=== PATIENT | female | born 1935 | race Caucasian/White ===

== ENCOUNTER 2017-05-20 11:15 | Emergency (ER) | payer MEDICARE ==
[2017-05-20 11:23] VITALS: BP 147/74
[2017-05-20] MEDS ORDERED: Dexamethasone 4 MG/ML SDV IM ONE (12:01)
[2017-05-20] MEDS ORDERED: Levofloxacin 500 MG Tab PO ONE (12:01)
[2017-05-20] MEDS ORDERED: Lidocaine 1% 20 ML MDV INJECT ONE (12:01)
[2017-05-20] MEDS ORDERED: cefTRIAXone 1 GM Vial IM ONE (12:01)
[2017-05-20] MEDS ORDERED: Take Home: Codeine/Promethazine 10-6.25 MG/5 ML Syrup 5 ML, 2 Cup Pack PO ONE (12:09)
--- NOTE | 2017-05-20 12:10 | EDM.PDOC ---
ED HPI GENERAL MEDICAL PROBLEM - General Chief Complaint: General Stated Complaint: "cold and cough" Time Seen by Provider: 05/20/17 11:20 - History of Present Illness INITIAL COMMENTS - FREE TEXT/NARRATIVE: SOB with cough for a week Onset: Gradual Duration: Day(s): Location: Reports: Chest Severity: Moderate Associated Symptoms: Reports: Shortness of Breath - Related Data Allergies Allergy/AdvReac Type Severity Reaction Status Date / Time Penicillins Allergy Other Verified 05/20/17 11:16 Home Meds: Home Meds Levothyroxine [Synthroid] 100 mcg PO ACBREAKFAST 04/08/15 [History] Raloxifene [Evista] 60 mg PO DAILY 04/08/15 [History] Cholecalciferol (Vitamin D3) [Vitamin D] 2,000 unit PO DAILY 09/08/15 [History] Denosumab [Prolia] 60 mg SUBCUT ASDIRECTED 03/08/16 [History] Fish Oil/[place]-3 Fatty Acids [Fish Oil] 1 each PO DAILY 03/08/16 [History] Furosemide [Furosemide] 40 mg PO DAILY 03/08/16 [History] Naproxen Sodium [Aleve] 440 mg PO BID PRN 03/08/16 [History] Oxybutynin [Oxybutynin ER] 10 mg PO DAILY 09/08/16 [History] Past Medical History HEENT History: Reports: Glaucoma Cardiovascular History: Reports: Heart Murmur Musculoskeletal History: Reports: Other (See Below) Other Musculoskeletal History: back fusion Endocrine/Metabolic History: Reports: Hypothyroidism - Past Surgical History HEENT Surgical History: Reports: Tonsillectomy GI Surgical History: Reports: Cholecystectomy Social & Family History - Tobacco Use Smoking Status *Q: Former Smoker Years of Tobacco use: 1 Used Tobacco, but Quit: Yes Month Tobacco Last Used: unknown - Caffeine Use Caffeine Use: Reports: Coffee - Recreational Drug Use Recreational Drug Use: No ED ROS GENERAL - Review of Systems Review Of Systems: ROS reveals no pertinent complaints other than HPI. ED EXAM, GENERAL - Physical Exam Exam: See Below Exam Limited By: No Limitations General Appearance: Alert, WD/WN Nose: Normal Inspection Throat/Mouth: Normal Inspection Head: Atraumatic Neck: Normal Inspection Respiratory/Chest: Crackles, Rhonchi, Wheezing GI/Abdominal: Normal Bowel Sounds Rectal (Female) Exam: Normal Exam Back Exam: Normal Inspection Extremities: Normal Inspection Neurological: Alert, Oriented Skin Exam: Warm, Dry Course - Vital Signs Last Recorded V/S: Last Vital Signs Temp 98.6 F 05/20/17 11:17 Pulse 93 05/20/17 11:17 Resp 16 05/20/17 11:17 BP 147/74 H 05/20/17 11:17 Pulse Ox 93 L 05/20/17 11:17 - Orders/Labs/Meds Orders: Active Orders 24 hr Category Date Time Status Chest 2V [CR] Stat Exams 05/20/17 11:25 Taken Dexamethasone Med 05/20/17 12:01 Once 4 mg IM ONETIME ONE Levofloxacin [Levaquin] Med 05/20/17 12:01 Once 500 mg PO ONETIME ONE Lidocaine 1% [Xylocaine 1%] Med 05/20/17 12:01 Once 20 ml INJECT ONETIME ONE cefTRIAXone [Rocephin] Med 05/20/17 12:01 Once 1 gm IM ONETIME ONE Departure - Departure Time of Disposition: 12:11 Disposition: Home, Self-Care 01 Condition: Good Clinical Impression: Pneumonia - Discharge Information Forms: ED Department Discharge Additional Instructions: Take your medications as prescribed. Follow up with your regular doctor this week - My Orders Last 24 Hours: My Active Orders 05/20/17 11:25 Chest 2V [CR] Stat 05/20/17 12:01 Dexamethasone 4 mg IM ONETIME ONE Levofloxacin [Levaquin] 500 mg PO ONETIME ONE Lidocaine 1% [Xylocaine 1%] 20 ml INJECT ONETIME ONE cefTRIAXone [Rocephin] 1 gm IM ONETIME ONE - Assessment/Plan Last 24 Hours: My Active Orders 05/20/17 11:25 Chest 2V [CR] Stat 05/20/17 12:01 Dexamethasone 4 mg IM ONETIME ONE Levofloxacin [Levaquin] 500 mg PO ONETIME ONE Lidocaine 1% [Xylocaine 1%] 20 ml INJECT ONETIME ONE cefTRIAXone [Rocephin] 1 gm IM ONETIME ONE
[2017-05-20] MEDS ORDERED: Albuterol 8 GM Inhaler INH PRN (12:13)
== END 2017-05-20 12:45 | disposition home or self-care (01) ==
LOC: CC.ED 11:15
DX: J18.9 Pneumonia, unspecified organism (principal); E03.9 Hypothyroidism, unspecified; Z88.0 Allergy status to penicillin; Z79.899 Other long term (current) drug therapy; Z98.890 Other specified postprocedural states; Z90.49 Acquired absence of other specified parts of digestive tract; Z87.891 Personal history of nicotine dependence
CPT/HCPCS: 71020; 96372; 99283; A9270; J0696; J1100

== ENCOUNTER 2017-05-23 11:02 | Emergency (ER) | payer MEDICARE ==
[2017-05-23 11:18] VITALS: BP 148/71
[2017-05-23 12:02] LABS: CHLORIDE,CL 103 mEq/L (98-106); SODIUM,NA 140 mEq/L (136-145)
--- NOTE | 2017-05-23 12:17 | EDM.PDOC ---
[id number]: SOB/COUGHING/HURTING Time Seen by Provider: 05/23/17 12:00 Source of Information: Reports: Patient History Limitations: Reports: No Limitations - History of Present Illness INITIAL COMMENTS - FREE TEXT/NARRATIVE: Patient presents with concerns that cough, chest congestion has worsened. Unable to sleep due to the cough. Cough is productive at times of clear phlegm. Does have sinus congestion and drainage as well. Patient was seen in the ER on Sunday by the locum, had a chest xray and was told she had a touch of pneumonia. She was given Rocephin, Decadron and discharged home on Tessalon pearles and Levaquin. Has been taking those meds but does not feel like it is helping. She noted today that at times her sputum was pink. She denies a fever. No headaches. Has not had much of an appetite. Onset: Gradual Duration: Day(s): Location: Reports: Chest Quality: Reports: Dull Severity: Moderate Improves with: Reports: Rest Associated Symptoms: Reports: Cough, cough w sputum, Loss of Appetite, Malaise, Weakness. Denies: Chest Pain, Diaphoresis, Fever/Chills, Headaches, Nausea/ Vomiting, Shortness of Breath Treatments [employer] REPA[employer]ER: Reports: Other Medication(s) Abdominal Pain Score (Numeric/FACES): 7 - Related Data Allergies Allergy/AdvReac Type Severity Reaction Status Date / Time Penicillins Allergy Other Verified 05/23/17 11:18 Home Meds: Home Meds Levothyroxine [Synthroid] 100 mcg PO ACBREAKFAST 04/08/15 [History] Raloxifene [Evista] 60 mg PO DAILY 04/08/15 [History] Cholecalciferol (Vitamin D3) [Vitamin D] 2,000 unit PO DAILY 09/08/15 [History] Denosumab [Prolia] 60 mg SUBCUT ASDIRECTED 03/08/16 [History] Fish Oil/[place]-3 Fatty Acids [Fish Oil] 1 each PO DAILY 03/08/16 [History] Furosemide [Furosemide] 40 mg PO DAILY 03/08/16 [History] Naproxen Sodium [Aleve] 440 mg PO BID PRN 03/08/16 [History] Oxybutynin [Oxybutynin ER] 10 mg PO DAILY 09/08/16 [History] Benzonatate 200 mg PO TID PRN 05/23/17 [History] Levofloxacin [Levaquin] 500 mg PO Q24H 05/23/17 [History] Prednisone [IJD: predniSONE] 20 mg PO WITHBREAKFAST #10 tab 05/23/17 [Rx] Past Medical History HEENT History: Reports: Glaucoma Cardiovascular History: Reports: Heart Murmur Musculoskeletal History: Reports: Other (See Below) Other Musculoskeletal History: back fusion Endocrine/Metabolic History: Reports: Hypothyroidism - Past Surgical History HEENT Surgical History: Reports: Tonsillectomy GI Surgical History: Reports: Cholecystectomy Social & Family History - Tobacco Use Smoking Status *Q: Never Smoker Years of Tobacco use: 1 Used Tobacco, but Quit: Yes Month Tobacco Last Used: unknown - Caffeine Use Caffeine Use: Reports: Coffee - Recreational Drug Use Recreational Drug Use: No ED ROS GENERAL - Review of Systems Review Of Systems: See Below Constitutional: Reports: Chills, Malaise, Weakness, Fatigue, Decreased Appetite. Denies: Fever HEENT: Reports: Rhinitis, Sinus Problem. Denies: Ear Pain, Throat Pain Respiratory: Reports: Cough, Sputum. Denies: Shortness of Breath, Wheezing Cardiovascular: Denies: Chest Pain, Edema, Lightheadedness Endocrine: Reports: Fatigue GI/Abdominal: Reports: Decreased Appetite. Denies: Abdominal Pain, Constipation , Diarrhea, Nausea, Vomiting : Reports: No Symptoms Musculoskeletal: Reports: No Symptoms Skin: Reports: No Symptoms Neurological: Reports: No Symptoms Psychiatric: Reports: No Symptoms ED EXAM, GENERAL - Physical Exam Exam: See Below Exam Limited By: No Limitations General Appearance: Alert, WD/WN, No Apparent Distress Ears: Normal External Exam, Normal TMs Nose: Normal Inspection, Normal Mucosa, Clear Rhinorrhea Throat/Mouth: Normal Inspection, Normal Oropharynx Head: Normocephalic Neck: Normal Inspection, Supple, Non-Tender Respiratory/Chest: No Respiratory Distress, Normal Breath Sounds, Rhonchi Cardiovascular: Regular Rate, Rhythm, No Edema GI/Abdominal: Normal Bowel Sounds, Soft, Non-Tender Neurological: Alert, Oriented Psychiatric: Normal Affect, Normal Mood Skin Exam: Warm, Dry, Intact Course - Vital Signs Last Recorded V/S: Last Vital Signs Temp 97.2 F 05/23/17 11:15 Pulse 110 H 05/23/17 11:15 Resp 20 05/23/17 11:15 BP 148/71 H 05/23/17 11:15 Pulse Ox 94 L 05/23/17 11:15 - Orders/Labs/Meds Orders: Active Orders 24 hr Category Date Time Status Chest 2V [CR] Stat Exams 05/23/17 11:32 Taken Labs: Laboratory Tests 05/23/17 05/23/17 Range/Units 11:45 11:45 WBC 11.9 H (5.0-10.0) 10^3/uL RBC 4.26 (4.00-5.50) 10^6/uL Hgb 13.0 (12.0-16.0) g/dL Hct 39.7 (37.0-47.0) % MCV 93.2 (82.0-94.0) fL MCH 30.5 (27.0-32.0) pg MCHC 32.7 L (33.0-38.0) g/dL RDW Coeff of Kathleen 13.2 (11.0-15.0) % Plt Count 280 (150-400) 10^3/uL Neut % (Auto) 74.0 (35-85) % Lymph % (Auto) 17.8 (10-55) % [place] % (Auto) 5.5 (0-16) % Eos % (Auto) 2.4 (0-5) % Baso % (Auto) 0.3 (0-3) % Neut # (Auto) 8.83 H (1.80-7.00) 10^3/uL Lymph # (Auto) 2.12 (1.00-4.80) 10^3/uL [place] # (Auto) 0.65 (0.00-0.80) 10^3/uL Eos # (Auto) 0.28 (0.00-0.45) 10^3/uL Baso # (Auto) 0.03 10^3/uL Sodium 140 (136-145) mEq/L Potassium 3.3 L D (3.5-5.0) mEq/L Chloride 103 (98-106) mEq/L Carbon Dioxide 27 (21-32) mmol/L BUN 15 (7-18) mg/dL Creatinine 1.1 H (0.6-1.0) mg/dL Est Cr Clr Drug Dosing TNP Estimated GFR (MDRD) 48 L (>=60) mL/min Glucose 168 H D (75-99) mg/dL Calcium 8.7 (8.4-10.1) mg/dL Total Bilirubin 0.5 (0.0-1.0) mg/dL AST 15 (15-37) U/L ALT 38 (12-78) U/L Alkaline Phosphatase 57 (46-116) U/L C-Reactive Protein 1.0 H (0.2-0.8) mg/dL Total Protein 7.3 (6.4-8.2) g/dL Albumin 3.4 (3.4-5.0) g/dL - Re-Assessments/Exams Free Text/Narrative Re-Assessment/Exam: 05/23/17 Labs reviewed. Chest xray unremarkable. Discussed with patient. Will have her continue her Levaquin, start prednisone and use phenergan with codeine for cough as she does not find much benefit from the tessalon. Patient is in agreement with that and agrees with plan. Departure - Departure Time of Disposition: 12:11 Disposition: Home, Self-Care 01 Condition: Fair Clinical Impression: Bronchitis - Discharge Information Prescriptions: Prednisone [IJD: predniSONE] 20 mg PO WITHBREAKFAST #10 tab Referrals: Sumi Khan PA-C [Family Provider] - Forms: ED Department Discharge Additional Instructions: 1. Push fluids 2. Prednisone 20 mg- 2 tabs daily for 5 days 3. Phenergan with codeine 1-2 tsp every 6 hours as needed 4. Continue Levaquin 5. Follow up if any ongoing concern - My Orders Last 24 Hours: My Active Orders 05/23/17 11:32 Chest 2V [CR] Stat - Assessment/Plan Last 24 Hours: My Active Orders 05/23/17 11:32 Chest 2V [CR] Stat
== END 2017-05-23 12:25 | disposition home or self-care (01) ==
LOC: CC.ED 11:02
DX: J40 Bronchitis, not specified as acute or chronic (principal); E03.9 Hypothyroidism, unspecified; Z88.0 Allergy status to penicillin; Z79.899 Other long term (current) drug therapy; Z90.49 Acquired absence of other specified parts of digestive tract; Z98.890 Other specified postprocedural states
CPT/HCPCS: 36415; 71020; 80053; 85025; 86140; 99283

== ENCOUNTER 2024-07-15 07:59 | Emergency (ER) | payer MEDICARE, MEDICAID ==
[2024-07-15] MEDS: Aspirin 81 MG Tab.Chew PO ONE (08:19)
[2024-07-15 08:47] LABS: BASOPHILS ABSOLUTE AUTO 0.03 10^3/uL (0.00-0.50); BASOPHILS PERCENT AUTO 0.4 % (0-1); EOSINOPHILS ABSOLUTE AUTO 0.15 10^3/uL (0.00-1.50); EOSINOPHILS PERCENT AUTO 1.9 % (0-6); HEMATOCRIT 34.6 % (37.0-47.0); HEMOGLOBIN 11.1 g/dL (12.0-16.0); IMMATURE GRAN ABSOLUTE AUTO 0.01 10^3/uL (0.00-0.49); IMMATURE GRAN PERCENT AUTO 0.1 % (0.0-4.9); LYMPHOCYTES ABSOLUTE AUTO 1.77 10^3/uL (0.60-5.00); LYMPHOCYTES PERCENT AUTO 22.5 % (24-44); MEAN CORPUSCULAR HEMOGLOBIN 29.9 pg (27.0-32.0); MEAN CORPUSCULAR HGB CONC 32.1 g/dL (32.0-36.0); MEAN CORPUSCULAR VOLUME 93.3 fL (83.0-97.0); MONOCYTES ABSOLUTE AUTO 0.66 10^3/uL (0.00-1.50); MONOCYTES PERCENT AUTO 8.4 % (0-10); NEUTROPHILS ABSOLUTE AUTO 5.23 x10^3/uL (1.80-8.00); NEUTROPHILS PERCENT AUTO 66.7 % (41-71); PLATELET COUNT,PLT 196 10^3/uL (150-400); RED BLOOD CELL COUNT 3.71 x10^6/uL (4.00-5.50); WHITE BLOOD CELL COUNT,WBC 7.9 10^3/uL (4.0-11.0)
[2024-07-15] MEDS: Ondansetron 4 MG/2 ML SDV IVPUSH STA (08:47)
[2024-07-15 09:19] VITALS: PULSE 68
[2024-07-15 09:19] LABS: ALANINE AMINOTRANSFERASE,ALT 13 U/L (12-78); ALKALINE PHOSPHATASE 60 U/L (46-116); ASPARTATE AMNIOTRANSFERASE,AST 8 U/L (15-37); BILIRUBIN TOTAL 0.3 mg/dL (0.0-1.0); BLOOD UREA NITROGEN,BUN 24 mg/dL (7-18); C-REACTIVE PROTEIN 0.93 mg/dL (<=0.50); CALCIUM 8.6 mg/dL (8.4-10.1); CARBON DIOXIDE,CO2 31 mmol/L (21-32); CHLORIDE,CL 104 mEq/L (98-106); CREATININE 1.5 mg/dL (0.6-1.0); GLUCOSE RANDOM 141 mg/dL (75-99); MAGNESIUM 2.2 mg/dL (1.8-2.4); POTASSIUM,K 4.4 mEq/L (3.5-5.0); PRO B-TYPE NATRIUR PEPT,BNPPRO 382 pg/mL (0-1000); PROTEIN TOTAL,TP 6.2 g/dL (6.4-8.2); SODIUM,NA 142 mEq/L (136-145)
[2024-07-15 09:20] LABS: ESTIMATED GFR 34 mL/min (>=60)
[2024-07-15] MEDS: Iopamidol 755 Mg/ML 100 ML Bottle IVPUSH ONE (10:28)
[2024-07-15 10:34] VITALS: BP 173/65
== END 2024-07-15 13:05 | disposition home or self-care (01) ==
LOC: CC.ED 07:59
DX: R07.9 Chest pain, unspecified (principal); E03.9 Hypothyroidism, unspecified; Z90.49 Acquired absence of other specified parts of digestive tract; Z79.899 Other long term (current) drug therapy; Z88.0 Allergy status to penicillin
CPT/HCPCS: 36415; 71045; 71275; 80053; 83735; 83880; 84484; 85025; 85379; 85730; 86140; 93005; 93010; 96374; 99284; 99285-25; A9270-GY; J2405; Q9967